=== PATIENT | male | born 1995 | race Two or more races ===

== ENCOUNTER 2017-11-19 11:39 | Emergency (ER) | payer OTHER ==
[2017-11-19] MEDS ORDERED: oxyCODONE/Acetamin 5/325 MG* TAB PO ONE (13:53)
--- NOTE | 2017-11-19 15:04 | RAD ---
Indication: Walking and felt RIGHT knee pop laterally. Pain and decreased mobility. Denies previous injury. Comparison: None. Technique: RIGHT knee: AP, tunnel, crosstable lateral, sunrise views. Report: Moderate joint effusion. Small bone fragments at the anterior intercondylar region and cephalad margin of the patellofemoral joint. No definitive donor site for the fracture fragments visualized. Normal articular alignment. Mild anterior soft tissue swelling. IMPRESSION: Joint effusion acute appearing intra-articular loose bodies without identified fracture fragment donor site.
[2017-11-19 16:20] VITALS: BP 130/76
--- NOTE | 2017-11-20 11:57 | ED ---
Orin Nair Edward, scribed for Carlitos Walker MD on 11/19/17 at 1306 . Lower Extremity - HPI Summary HPI Summary: 22 y/o male presents to the ED c/o sudden onset R knee pain s/p injury last night. Pt was dancing last night; afterward he was walking and his knee "snapped " to the right in a weird way - pt heard a pop. Pain aggravated with movement and ambulation; pt is unable to straighten the knee. Pain not alleviated with Ibuprofen. - History of Current Complaint Chief Complaint: EDExtremityLower Stated Complaint: RT KNEE PAIN Time Seen by Provider: 11/19/17 12:56 Hx Obtained From: Patient Mechanism Of Injury: Twisted Onset of Pain: Immediate Onset/Duration: Hours Severity Currently: Severe Pain Intensity: 8 Pain Scale Used: 0-10 Numeric Timing: Constant Location: Is Discrete @ - R knee Associated Signs And Symptoms: Positive: Knee Pain Aggravating Factor(s): Ambulation, Movement, Other - straightening Alleviating Factor(s): Nothing Able to Bear Weight: No - Allergies/Home Medications Allergies/Adverse Reactions: Allergies Allergy/AdvReac Type Severity Reaction Status Date / Time No Known Allergies Allergy Verified 11/19/17 11:55 PMH/Surg Hx/FS Hx/Imm Hx Previously Healthy: No Endocrine/Hematology History: Denies: Hx Diabetes Cardiovascular History: Denies: Hx Congestive Heart Failure, Hx Myocardial Infarction Infectious Disease History: No Infectious Disease History: Denies: Traveled Outside the [place] in Last 30 Days - Family History Known Family History: Positive: Unknown - Social History Occupation: Student Review of Systems Constitutional: Negative Eyes: Negative ENT: Negative Cardiovascular: Negative Respiratory: Negative Gastrointestinal: Negative Genitourinary: Negative Positive: Arthralgia - R knee pain Skin: Negative Neurological: Negative Psychological: Normal All Other Systems Reviewed And Are Negative: Yes Physical Exam - Summary Physical Exam Summary: GENERAL: ~Patient is a well developed and nourished M who is lying comfortable in the stretcher. ~Patient is not in any acute respiratory distress. HEAD AND FACE: Normocephalic EYES: PERRLA, EOMI x 2. EARS: Hearing grossly intact. MOUTH: Oropharynx within normal limits. NECK: Supple, trachea is midline, no adenopathy, no JVD, no carotid bruit. CHEST: Symmetric, no tenderness at palpation LUNGS: Clear to auscultation bilaterally. No wheezing or crackles. CVS: Regular rate and rhythm, S1 and S2 present, no murmurs or gallops appreciated. ABDOMEN: Soft, non-tender. Bowel sounds are normal. No abdominal abnormal pulsations. EXTREMITIES: ROM R knee limited secondary to pain. TTP @ medial aspect of R knee. NEURO: Alert and oriented x 3. No acute neurological deficits. Speech is normal and follows commands. SKIN: Dry and warm Triage Information Reviewed: Yes Vital Signs On Initial Exam: Initial Vitals Temp Pulse Resp BP Pulse Ox 97.9 F 84 14 126/74 99 11/19/17 11:47 11/19/17 11:47 11/19/17 11:47 11/19/17 11:47 11/19/17 11:47 Vital Signs Reviewed: Yes Diagnostics - Vital Signs Vital Signs Temp Pulse Resp BP Pulse Ox 11/19/17 11:47 97.9 F 84 14 126/74 99 - Laboratory Lab Statement: Any lab studies that have been ordered have been reviewed, and results considered in the medical decision making process. - Radiology KNEE XR Xray Interpretation: Positive (See Comments) - Joint effusion acute appearing intra-articular loose bodies without identified fracture fragment donor site. Radiology Interpretation Completed By: Radiologist - ED PHYSICIAN REVIEWS AND AGREES Re-Evaluation - Re-Evaluation 1 Re-Evaluation Time: 15:32 Change: Unchanged Comment: discuss XR results Lower Extremity Course/Dx - Course Assessment/Plan: 22 y/o male presents to the ED c/o R leg injury.XR done shows R knee effusion as well as bony fragment in the joint, without identifiable fracture/source. Pt reports feeling better after given Percocet. R knee immobilized in knee immobilizer; pt given crutches. F/u with orthopedics. Strict precautions given. Pt will be d/c home with Tramadol. - Diagnoses Provider Diagnoses: Knee injury Discharge - Sign-Out/Discharge Documenting (check all that apply): Discharge/Admit/Transfer - Discharge Plan Condition: Stable Disposition: HOME Prescriptions: traMADol TAB* [Ultram*] 50 mg PO Q8H PRN 3 Days #12 tab MDD 3 PRN Reason: Pain Patient Education Materials: Swollen Knee Joint (ED), Knee Pain (ED), Knee Immobilizer (ED) Referrals: Kevin Meneses MD [Medical Doctor] - 4 Days (PLEASE F/U IN 3-5 DAYS) The documentation as recorded by the scribOrin arroyo Edward accurately reflects the service I personally performed and the decisions made by me, Carlitos Walker MD.
== END 2017-11-19 16:39 | disposition home or self-care (01) ==
LOC: ED 11:39
DX: S89.91XA Unspecified injury of right lower leg, initial encounter (principal); X58.XXXA Exposure to other specified factors, initial encounter; Y93.41 Activity, dancing; Y92.9 Unspecified place or not applicable; M25.461 Effusion, right knee
CPT/HCPCS: 99282; A9270-GY

== ENCOUNTER 2017-12-15 11:11 | Day surgery (SDC) | payer OTHER ==
--- NOTE | 2017-12-09 01:57 | HP ---
AMENDED REPORT NOW INCLUDES COSIGNER DESIGNAION - ESIGNED BEFORE ADJUSTMENTS PREOPERATIVE HISTORY AND PHYSICAL: DATE OF ADMISSION/SURGERY: 12/15/17 DATE OF OFFICE VISIT: 12/07/17 ATTENDING SURGEON: Dr. Bethany Soria.* (DICTATED BY GALO ALLISON) PROCEDURE: Right knee arthroscopic surgery, possible meniscus repair, possible BioCartilage, medial patellofemoral ligament reconstruction with allograft. CHIEF COMPLAINT: Right knee pain. HISTORY OF PRESENT ILLNESS: Olivia is a 22-year-old male, who presents to the clinic for a right knee pain after an injury 3 weeks ago on 11/18/17. He was at a alliance party when he turned on his knee suddenly. He felt his shift to the right and he had immediate pain and went and fell to the ground. He had immediate pain and difficulty weightbearing, and swelling of the knee. He was seen in the ER the next day and placed in a knee immobilizer. He used ice and ibuprofen , which was minimally helpful. He reports persistent pain and swelling in his knee. He has diffuse pain. He rates it as a 6/10. He has noticed a little bit of increased range of motion and improvement in the swelling in the past couple of days. However, the past week, the knee has caused him a lot of pain. He also reports spasms in his thighs and states that he feels like his knee locks. He saw Dr. Garcia, who sent him for an MRI. He has never had any surgery of the right knee. He denies numbness, tingling, fevers, chills, dyspnea , or shortness of breath, and he is doing well. Otherwise, he has been partial to non-weightbearing on the right knee with use of crutches recently. He can weight bear, but he has pain with weightbearing. PAST MEDICAL HISTORY: Depression, anxiety. PAST SURGICAL HISTORY: Septoplasty and appendectomy. He denies prior complications with anesthesia. MEDICATIONS: 1. Prozac 10 mg 1 by mouth daily. 2. Fluoxetine 20 mg 1 by mouth daily. 3. Vitamin D 4000 International Units 1 daily. 4. Vitamin B12 250 mcg 1 by mouth daily. 5. Tramadol 50 mg 1 to 2 tabs every 6 hours as needed for pain. 6. Calcium 600-200 mg 1 by mouth twice a day. 7. Wellbutrin 100 mg 1 by mouth every morning. ALLERGIES: No known drug allergies. FAMILY HISTORY: Positive for heart disease, hypertension, and prostate cancer in his grandfather. SOCIAL HISTORY: He is a student. He smokes 1 cigarette a week when he drinks. He reports occasional alcohol consumption. He also reports marijuana use. REVIEW OF SYSTEMS: A 14-point review of systems was reviewed with the patient. Positive for current complaint, otherwise negative. He denies fevers, chills, chest pain, or shortness of breath, history of DVT or PE. History of bleeding disorder. History of MRSA. PHYSICAL EXAMINATION GENERAL: A 22-year-old, well-developed, well-nourished male, in no acute distress. Alert and oriented x3. Appropriate mood and affect. Appropriate balance and coordination of the lower extremity. GAIT: Antalgic gait favoring the right knee, uses crutches for assistance with ambulation. VITAL SIGNS: Height 73, weight 213. Blood pressure 126/74, respiratory rate 18 , BMI 28.1. HEENT: Normocephalic, atraumatic. PERRLA. Throat clear. NECK: Supple. PULMONARY: Lungs clear to auscultation bilaterally. No wheezing, rhonchi, or rales. CARDIO: Regular rate and rhythm. S1, S2. No murmurs, gallops or rubs. No edema. ABDOMEN: Positive bowel sounds. Soft, nontender. MUSCULOSKELETAL: Right lower extremity, skin is intact. No abrasions or open wounds. No warmth or erythema. Moderate effusion. Range of motion 20 to 90 degrees. Diffuse tenderness to palpation over the knee including the lateral joint line. Stable to varus and valgus stress. Stable Rosa. However, difficulty performing the test due to guarding. Calves soft, nontender. +5/5 strength to dorsiflexion and plantarflexion. Sensation is intact to light touch distally. NEURO: Alert and oriented x3. Cranial nerves grossly intact. STUDIES: Multiple view x-rays of the right knee revealed presence of loose bodies in the joint. MRI of the right knee revealed large joint effusion, a partial tear of the medial retinaculum, osteochondral fracture of the apex of the patella, impaction fracture of the lateral femoral condyle, several osteochondral loose bodies, mild patella mike, partial tear of the medial, and lateral collateral ligament, and a small longitudinal tear of the anterior horn of the lateral meniscus. ASSESSMENT AND PLAN: Olivia is a 22-year-old male, who presents to the clinic for right knee pain after an injury 3 weeks ago. He had a patellar dislocation and has an osteochondral fracture in the apex of the patella as well as presence of osteochondral loose bodies and a possible lateral meniscal tear. This is a significant injury to the knee; therefore, Dr. Soria recommends surgery to help decrease the patient's pain and improve the function of the knee. It was explained to the patient that he is at increased risk of osteoarthritis due to the degree of the injury and the osteochondral defects. Risk of surgery to include risk of anesthesia, infection, bleeding, numbness, injury to blood vessels, nerve, surrounding structures, stiffness, persistent pain, scarring, and risk of deep venous thrombosis and pulmonary embolism were discussed with the patient as well as postop recovery. He has agreed to undergo surgery and is therefore scheduled to undergo a right knee arthroscopic surgery, possible meniscus repair, possible BioCartilage, and a medial patellofemoral ligament reconstruction with allograft with Dr. Soria on . He will follow up in 10 to 14 days postop for followup and suture removal. Percocet will be used for postop pain management. GALO ALLISON [id number]/[facility] #: [id number] MTDLuke
[~2017-12-15 11:11] MED LIST: Buffered Lidocaine 0.9% SYRIN* 5 ML/SYR SYRINGE INTRADERM ONE; Dexamethasone TAB* 4 MG PO ONE; DiMENhydriNATE IV* 50 MG/ML VIAL IV PUSH PRN; Famotidine IV* 10 MG/ML 2 ML (20 mg) IV ONE; Morphine INJ* 2 MG/ML 1 ML CARPUJECT IV PRN; Naloxone* 0.4 MG/ML 1 ML VIAL IV PRN; Ondansetron INJ* 2 MG/ML VIAL ONE; PROCHLORPERAZINE INJ 5 MG/ML 2 ML VIAL IV PRN; Scopolamine 1.5 mg* PATCH TRANSDERM PRN; fentaNYL* 50 MCG/ML 2 ML VIAL (100 MCG VIAL) IV PRN; oxyCODONE/Acetamin 5/325 MG* TAB PO PRN
[2017-12-15] MEDS ORDERED: Ondansetron ODT TAB* 4 MG ONE (11:25)
[2017-12-15] MEDS ORDERED: Dexamethasone TAB* 4 MG ONE (11:25)
[2017-12-15] MEDS ORDERED: Famotidine IV* 10 MG/ML 2 ML (20 mg) ONE (11:25)
[2017-12-15] MEDS ORDERED: ceFAZolin 2 GM PREMIX (*) 2 GM/50 ML BAG IVPB ONE (11:26)
[2017-12-15] MEDS ORDERED: Midazolam* 1 MG/ML 5 ML VIAL (5 MG) ONE (11:51)
[2017-12-15] MEDS ORDERED: fentaNYL* 50 MCG/ML 2 ML VIAL (100 MCG VIAL) ONE ×2 (11:51→12:52)
[2017-12-15] MEDS ORDERED: methylPREDNISolone ACETATE 80* 80 MG/ML 1 ML VIAL ONE (12:30)
[2017-12-15] MEDS ORDERED: Bupivacaine 0.5% SDV PF* 30ML VIAL ONE (12:30)
[2017-12-15] MEDS ORDERED: Lidocaine 1% MPF wEPI 200,000* 30 ML SDV ONE (12:30)
[2017-12-15] MEDS ORDERED: PROCHLORPERAZINE INJ 5 MG/ML 2 ML VIAL ONE (12:52)
[2017-12-15] MEDS ORDERED: Ketorolac INJ* 30 MG/ML 1 ML VIAL ONE (12:52)
[2017-12-15] MEDS ORDERED: Lidocaine 2% PF * 5 ML VIAL ONE (12:52)
[2017-12-15] MEDS ORDERED: Propofol* 10 MG/ML 20 ML BTL IV PUSH ONE (12:52)
[2017-12-15 14:50] VITALS: BP 121/87
--- NOTE | 2017-12-16 09:21 | OP ---
OPERATIVE REPORT: DATE OF OPERATION: 12/15/17 DATE OF : 89 SURGEON: Bethany Soria MD PRIMARY PRODUCTS INSPECTORS: None. ANESTHESIOLOGIST: Dr. Worthy. ANESTHESIA: General. PRE-OP DIAGNOSIS: Right knee patellar dislocation with MCL sprain and osteochondral fracture with loose bodies. POST-OP DIAGNOSIS: Right knee patellar dislocation with MCL sprain and osteochondral fracture with loose bodies. OPERATIVE PROCEDURE: Right knee arthroscopy with synovectomy and removal of loose body x1, which is greater than 1 cm. COMPLICATIONS: None. ESTIMATED BLOOD LOSS: Minimal. INDICATIONS: Olivia Armando is a 22-year-old who sustained injury to his right knee on 11/18/17. He states that he twisted his knee and he felt his knee shift and fell to the ground. He was diagnosed with patellar dislocation with an MCL sprain. He also had numerous small loose chondral pieces with a large osteochondral fragment. He had an osteochondral lesion to the patella as well as the lateral femoral condyle. He had inability to weight bear, no previous history of dislocations and a large swollen knee that was painful, limited range of motion. Risks and benefits of surgery were discussed at length and included but not limited to bleeding, infection, damage to nerves, vessels, surrounding structures, wound nonhealing, persistent pain, need for further surgery, scarring, stiffness, incomplete relief of symptoms, risks of anesthesia. DESCRIPTION OF PROCEDURE: The patient was greeted in the preoperative area by the attending surgeon. Correct extremity was marked, consent was confirmed. The patient was brought back to the operating suite, where he was placed in the supine position on the operating table. He then underwent general anesthesia with LMA intubation, after which a nonsterile tourniquet was placed high on the proximal thigh. The lateral post was positioned. There was a moderate effusion. Range of motion was assessed which was 2 to 120 degrees. Stable ligamentous exam. He had a firm endpoint with the medial and lateral glide. The right leg was then prepped and draped in a usual sterile fashion beginning with chlorhexidine soap and alcohol wipe and a final prep with ChloraPrep. After appropriate surgical pause indicating site, side, procedure, and administration of antibiotics, the knee was intraarticularly injected with 1% lidocaine with epi. The lateral portal was made with 11 blade, scope was introduced into the joint. There was hemarthrosis that was present. The scope was positioned in the suprapatellar pouch. There was evidence of synovitic tissue in small chondral flaps. There was obvious scar tissue and healing hematoma along the patellar defect, which encompassed the medial aspect of the patella, but not the entirety of the patella. At least 35% to 40% of the patellar facet was covered with hematoma. The gutters were examined. The lateral gutter was blocked due to the loose body. The medial gutter was intact with small debris. The medial portal was made in an outside-in fashion with the knee in 90 degrees. The shaver was used to debride back the abundant synovitis anteriorly and to debride back the small chondral cartilage and synovial flaps that were floating in the knee. The ACL and PCL were intact, but were injected. The medial compartment was examined and had grade 0 changes. The medial meniscus was intact. The lateral compartment was examined. The lateral tibial plateau had grade 1 changes. Lateral femoral condyle had grade 0 changes with the exception of the matching osteochondral defect which had a full thickness defect and irregular shape that is approximately 1 cm wide within the weightbearing portion. The lateral meniscus was otherwise intact. There was a loose body that was evident in the lateral compartment in the soft tissues. That was surrounded by the soft tissues and synovitis. This was removed by extending the incision to allow for this osteochondral fragment to be removed, it was not able to be repaired. Photos were taken and it was greater than 1 cm. The shaver and the electrocautery device was then used to do a synovectomy to remove any bands of tissue that could cause more abrasion to the chondral surfaces. The patella was found to not sublux laterally. The images and video of the chondral defect sites were then taken. There was already copious blood clot and small healing that is occurring already. Decision was made to not do any further procedures. The wounds were copiously irrigated with sterile saline. The portals were closed with 3-0 nylon in an interrupted fashion. The knee was intraarticularly injected with 0.25% Marcaine plain. Sterile dressings were applied. Cryo/Cuff was applied. He was awoken from anesthesia and transferred to PACU in stable condition. POSTOPERATIVE PLAN: He will be weightbearing with crutches. He will be allowed range of motion as tolerated. A DVT prophylaxis considered, but deferred due to no previous personal or family history. I will see the patient back in 10 to 14 days. [id number]/[facility] #: [id number] [facility]uke
[2017-12-18] MEDS ORDERED: Scopolamine PATCH Remove* 1 NOTE MISC PATCH OFF ONE (05:52)
== END 2017-12-15 15:29 | disposition home or self-care (01) ==
LOC: OR 11:11
PROVIDERS: ATTEND Orthopaedic Surgery
DX: S83.094A Other dislocation of right patella, initial encounter (principal); S83.411A Sprain of medial collateral ligament of right knee, initial encounter; M23.41 Loose body in knee, right knee; X50.0XXA Overexertion from strenuous movement or load, initial encounter; Y92.89 Other specified places as the place of occurrence of the external cause; Z72.0 Tobacco use; F41.8 Other specified anxiety disorders
CPT/HCPCS: A9270-GY; J0690; J0780; J1040; J1885; J2001; J2250; J2704; J3010; J8540

== ENCOUNTER 2019-04-03 20:58 | Emergency (ER) | payer OTHER ==
[2019-04-03] MEDS ORDERED: Acetaminophen TAB* 325 MG PO ONE (21:24)
[2019-04-03] MEDS ORDERED: Ondansetron ODT TAB* 4 MG SL ONE (21:39)
[2019-04-03] MEDS ORDERED: Ibuprofen TAB* 600 MG PO ONE (22:01)
[2019-04-03] MEDS: Cyclobenzaprine TAB* 10 MG PO ONE ×2 (22:21→22:30)
--- NOTE | 2019-04-03 23:27 | ED ---
Head Injury - HPI Summary HPI Summary: This patient is a 23 year old M presenting to [facility] with a chief complaint of head injury since 1930 on 04/03/19. Patient states that he was playing soccer when he fell and hit his head. As a result, patient experienced LOC for a "little while". The patient rates the pain 7/10 in severity, describing the pain as a pressure and aching. Pain is noted to be at temporal area of head and is reported to radiate to neck. Patient reports nausea but denies vision changes. PMHx of DM and HTN is denied. Patient states that he takes Adderall and Cymbalta. Symptoms aggravated by nothing. Symptoms alleviated by rest. - History Of Current Complaint Chief Complaint: EDHeadInjury Stated Complaint: HEAD INJURY PER PT Time Seen by Provider: 04/03/19 21:24 Hx Obtained From: Patient Mechanism Of Injury: Fall From A Standing Position Onset/Duration: Still Present Onset of Pain: Post Accident - 1929 playing soccer Severity Initially: Mild Pain Intensity: 7 Pain Scale Used: 0-10 Numeric Location of Head Injury: Temporal Location: Radiates To: - neck Character: Pressure, Aching Aggravating Factor(s): Other: - nothing Alleviating Factor(s): Other: - nothing Associated Signs And Symptoms: LOC (Time In Secs./Mins/Hrs) - "little while", Neck Pain, Nausea, Other: - negative - visual changes - Allergies/Home Medications Allergies/Adverse Reactions: Allergies Allergy/AdvReac Type Severity Reaction Status Date / Time No Known Allergies Allergy Verified 04/11/18 11:42 Home Medications: Home Medications DULoxetine DR CAP* [Cymbalta CAP*] 20 mg PO DAILY 04/03/19 [History Confirmed ] Dextroamphetamine/Amphetamine [Adderall Xr 30 mg Capsule] 30 mg PO DAILY [History Confirmed 04/03/19] PMH/Surg Hx/FS Hx/Imm Hx Endocrine/Hematology History: Denies: Hx Diabetes Cardiovascular History: Denies: Hx Congestive Heart Failure, Hx Hypertension, Hx Myocardial Infarction, Hx Pacemaker/ICD, Other Cardiovascular Problems/Disorders Respiratory History: Denies: Other Respiratory Problems/Disorders GI History: Denies: Other GI Disorders History: Denies: Hx Renal Disease Comment Only: Other Problems/Disorders - UTIs in the past. Musculoskeletal History: Reports: Other Musculoskeletal History - Right knee injury Sensory History: Denies: Hx Contacts or Glasses, Hx Hearing Aid Opthamlomology History: Denies: Hx Contacts or Glasses Neurological History: Denies: Other Neuro Impairments/Disorders Psychiatric History: Reports: Hx Anxiety - on medication, Hx Depression - on medication Denies: Hx Panic Disorder - Surgical History Surgical History: Yes Surgery Procedure, Year, and Place: APPENDECTOMY. SEPTOPLASTY. RIGHT KNEE 2017 Hx Anesthesia Reactions: No Infectious Disease History: No Infectious Disease History: Denies: Traveled Outside the [place] in Last 30 Days - Family History Known Family History: Negative: Hypertension - Social History Alcohol Use: Weekly Hx Substance Use: Yes Substance Use Type: Reports: Marijuana Substance Use Comment - Amount & Last Used: Once a month Hx Tobacco Use: Yes Smoking Status (MU): Light Every Day Tobacco Smoker Type: Cigarettes Amount Used/How Often: 2-3 cigs a week Review of Systems Eyes: Other - negative - visual changes Positive: Nausea. Negative: Vomiting Positive: Headache - temporal pain radiating into neck , Syncope - LOC All Other Systems Reviewed And Are Negative: Yes Physical Exam - Summary Physical Exam Summary: Constitutional: Well-developed, Well-nourished, Alert. (-) Distressed Skin: Warm, Dry HENT: Normocephalic; Atraumatic, tenderness of bilateral temples w/o deformity. Eyes: Conjunctiva normal Neck: Musculoskeletal ROM normal neck. (-) JVD, (-) Stridor, (-) Nuchal rigidity , Right sided Cervical paraspinal tenderness. Cardio: Rhythm regular, rate normal, Heart sounds normal; Intact distal pulses; Radial pulses are 2+ and symmetric. (-) Murmur Pulmonary/Chest wall: Effort normal. (-) Respiratory distress, (-) Wheezes, (-) Rales Abd: Soft, (-) tenderness, (-) Distension, (-) Guarding, (-) Rebound Musculoskeletal: No chest wall tenderness, (-) Edema Lymph: (-) Cervical adenopathy Neuro: Alert, Oriented x3 Psych: Mood and affect Normal Triage Information Reviewed: Yes Vital Signs On Initial Exam: Initial Vitals Temp Pulse Resp BP Pulse Ox 99.7 F 88 18 142/88 97 04/03/19 21:01 04/03/19 21:01 04/03/19 21:01 04/03/19 21:01 04/03/19 21:01 Vital Signs Reviewed: Yes Diagnostics - Vital Signs Vital Signs Temp Pulse Resp BP Pulse Ox 04/03/19 22:21 87 124/75 96 04/03/19 22:00 85 97 04/03/19 21:52 87 97 04/03/19 21:51 84 130/81 97 04/03/19 21:01 99.7 F 88 18 142/88 97 - Laboratory Lab Statement: Any lab studies that have been ordered have been reviewed, and results considered in the medical decision making process. Re-Evaluation - Re-Evaluation First Eval Change: Improved - 22:40 states he is doing better, pain improved. Patient has family members who will go home and watch him, plan for discharge to home with concussion precautions. Head Injury Course/Dx Course Of Treatment: 23 y/o male p/w closed head injury w LOC. Physical exam with right-sided paraspinal cervical tenderness otherwise unremarkable exam. Plan for observation. [place] Head CT Rule. High Risk: 1. GCS < 15 at two hours after injury? no. 2. Suspected open or depressed skull fracture? no. 3. Basilar skull fracture (hemotympanum, "raccoon" eyes, cerebrospinal fluid otorrhea/rhinorrhea, Hart's sign)? no. 4. Vomiting, two or more episodes? no. 5. Age > 65? no. 6. Retrograde amnesia, 30 mins? no. 7. "Dangerous" Mechanism (PEDSvsAuto, Ejection, Fall >3ft, Fall > 5 stairs) no. . Citation: Lancet. 2000November 25;357(2604):1394-6. The [place] CT Head Rule for patients with minor head injury. - Diagnoses Provider Diagnoses: Cervical strain, Concussion Discharge ED - Sign-Out/Discharge Documenting (check all that apply): Patient Departure - discharge Patient Received Moderate/Deep Sedation with Procedure: No - Discharge Plan Condition: Stable Disposition: HOME Patient Education Materials: Cervical Strain (ED), Concussion (ED) Referrals: [facility] [Outside] - 3 Days Additional Instructions: You were seen in the emergency department for head trauma. You likely has a concussion. You can take Motrin and Tylenol at home for your pain. Please return to the emergency department for worsening headache, vomiting, confusion, or further concerns.If any studies were not completed at the time of discharge you will be called with the relevant results. Please follow up with your primary care doctor in next 2-3 days and return to emergency department for worsening or concerning symptoms.It was a pleasure taking care of you today. - Billing Disposition and Condition Condition: STABLE Disposition: Home - Attestation Statements Document Initiated by Juliana: Yes Documenting Scribe: Roxy Garza Provider For Whom Juliana is Documenting (Include Credential): Lucho Sue MD Scribe Attestation: I, Roxy Garza, scribed for Lucho Sue MD on 04/04 at 0607. Scribe Documentation Reviewed: Yes Provider Attestation: The documentation as recorded by the joseibe, Roxy Garza accurately reflects the service I personally performed and the decisions made by me, Lucho Sue MD Status of Scribe Document: Viewed
[2019-04-03 23:37] VITALS: BP 117/79
== END 2019-04-03 23:35 | disposition home or self-care (01) ==
LOC: ED 20:58
DX: S06.0X9A Concussion with loss of consciousness of unspecified duration, initial encounter (principal); S16.1XXA Strain of muscle, fascia and tendon at neck level, initial encounter; W19.XXXA Unspecified fall, initial encounter; Y93.66 Activity, soccer; Y92.9 Unspecified place or not applicable; F41.9 Anxiety disorder, unspecified; F32.9 Major depressive disorder, single episode, unspecified; F17.210 Nicotine dependence, cigarettes, uncomplicated; Z79.899 Other long term (current) drug therapy
CPT/HCPCS: 99282; A9270-GY